=== PATIENT | male | born 1955 | race American Indian/Alaskan Native ===

== ENCOUNTER 2018-10-27 15:12 | Inpatient (IN) | payer MEDICARE, MEDICAID ==
--- NOTE | 2018-10-27 16:22 | RAD ---
HISTORY: Detox/Psy COMPARISON: None available. TECHNIQUE: Chest, one view. FINDINGS: LUNGS: No focal consolidation. Please note that chest x-ray has limited sensitivity for the detection of pulmonary masses. PLEURA: No significant pleural effusion identified. No definite pneumothorax . CARDIOVASCULAR: Heart size appears within normal limits. Ectatic aorta. Atherosclerotic calcifications. OSSEOUS STRUCTURES: Degenerative changes of the spine. VISUALIZED UPPER ABDOMEN: Mild elevation of the right hemidiaphragm. OTHER FINDINGS: None. IMPRESSION: No focal consolidation.
[2018-10-27] MEDS ORDERED: Aspirin 325 mg EC Tablets PO STA (16:26)
--- NOTE | 2018-10-27 16:42 | C.PDOC ---
History Of Present Illness 63 year old male with a PMHx of HTN, DM, CAD, s/p stent placement, and heroin abuse, presents requesting detox from heroin. Patient is also complaining of chest pain, rated 5/10, which is left-sided and non-radiating. He denies any a ssociated syncope, nausea, vomiting, diaphoresis, syncope, or dizziness. Patient states he used to take nitro for the pain but has not in a while. Time Seen by Provider: 10/27/18 15:51 Chief Complaint (Nursing): Substance Abuse History Per: Patient History/Exam Limitations: no limitations Onset/Duration Of Symptoms: Days Current Symptoms Are (Timing): Still Present Past Medical History Reviewed: Historical Data, Nursing Documentation, Vital Signs Vital Signs: Last Vital Signs Temp 98.2 F 10/27/18 15:28 Pulse 100 H 10/27/18 15:28 Resp 18 10/27/18 15:28 BP 184/110 H 10/27/18 15:28 Pulse Ox 95 10/27/18 15:28 - Medical History PMH: CAD, Diabetes, HTN Surgical History: Coronary Stent Family History: States: No Known Family Hx - Social History Hx Tobacco Use: Yes Hx Alcohol Use: No Hx Substance Use: Yes (Heroin, methadone) - Immunization History Hx Tetanus Toxoid Vaccination: Yes Hx Influenza Vaccination: Yes Hx Pneumococcal Vaccination: Yes Review Of Systems Except As Marked, All Systems Reviewed And Found Negative. Constitutional: Negative for: Fever, Sweats Cardiovascular: Positive for: Chest Pain Respiratory: Negative for: Cough, Shortness of Breath Gastrointestinal: Negative for: Nausea, Vomiting Neurological: Negative for: Weakness, Numbness, Headache, Dizziness Psych: Positive for: Other (Heroin abuse) Physical Exam - Physical Exam Appears: Non-toxic, No Acute Distress Skin: Warm, Dry, No Diaphoretic Head: Atraumatic, Normacephalic Eye(s): bilateral: Normal Inspection (conjunctiva clear), PERRL, EOMI Oral Mucosa: Moist Neck: Normal ROM, Supple Chest: Symmetrical, No Tenderness (to the chest wall), No Ecchymosis Cardiovascular: Rhythm Regular, No Edema Respiratory: Normal Breath Sounds, No Rales, No Rhonchi, No Wheezing Gastrointestinal/Abdominal: Soft, No Tenderness, No Distention Extremity: Normal ROM, No Pedal Edema, No Calf Tenderness Pulses: Left Dorsalis Pedis: Normal, Right Dorsalis Pedis: Normal Neurological/Psych: Oriented x3 ED Course And Treatment - Laboratory Results Result Diagrams: 10/27/18 16:48 10/27/18 16:48 Interpretation Of Abnormal: U-tox shows +opiates and methadone ECG: Interpreted By Me, Viewed By Me ECG Rhythm: Sinus Rhythm Interpretation Of ECG: NSR at 83 bpm, normal intervals, left axis deviation. no ST elevation, T wave inversions in lateral leads v5-6. No prior EKG for comparison Rate From EC O2 Sat by Pulse Oximetry: 95 (RA) Pulse Ox Interpretation: Normal - Other Rad CXR X-Ray: Read By Radiologist Interpretation: Accession No. : [id number]. Patient Name / ID : VADIM [id number] / [id number]. Exam Date : 10/27/2018 15:57:02 ( Approved ). Study Comment : Sex / Age : M / 63Y. Creator : José Manuel Mendoza. Dictator : Aisha Cruz MD. Newsroom Intern : Rehab Technician : Aisha Cruz MD. Approver2 : Report Date : 10/27/2018 16:10:28. My Comment : . HISTORY: Detox/Psy. COMPARISON: None available. TECHNIQUE: Chest, one view. FINDINGS: LUNGS: No focal consolidation. Please note that chest x-ray has limited sensitivity for the detection of pulmonary masses. PLEURA: No significant pleural effusion identif ied. No definite pneumothorax . CARDIOVASCULAR: Heart size appears within normal limits. Ectatic aorta. Atherosclerotic calcifications. OSSEOUS STRUCTURES: Degenerative changes of the spine. VISUALIZED UPPER ABDOMEN: Mild elevation of the right hemidiaphragm. OTHER FINDINGS: None. IMPRESSION: No focal consolidation. Medical Decision Making Medical Decision Making: Impression: Chest Pain, requesting detox Plan: - CBC, CMP, drug screen, cardiac enzymes - UA - EKG - Chest x-ray - 325 mg PO Aspirin EKG shows T wave inversions in lateral leads, no old EKG for comparison. Discussed with youth care worker, will likely need to admit patient to medical floor. 17:[address] Kolb, patient accepted for admission. Requests Dr. Montoya for cardiology consult. sheet metal worker helper states detox unit will hold the bed for patient. Disposition Counseled Patient/Family Regarding: Studies Performed, Diagnosis - Disposition Disposition: HOSPITALIZED Disposition Time: 17:41 Condition: STABLE - Clinical Impression Clinical Impression: Chest pain, Abnormal EKG, Hyperglycemia, Heroin abuse - Scribe Statement The provider has reviewed the documentation as recorded by the Scribe Huong Sims All medical record entries made by the Byronibe were at my direction and personally dictated by me. I have reviewed the chart and agree that the record accurately reflects my personal performance of the history, physical exam, medical decision making, and the department course for this patient. I have also personally directed, reviewed, and agree with the discharge instructions and disposition.
[2018-10-27 16:51] LABS: BASO % 0.5 % (0.0-2.0); EOS # 0.1 K/uL (0.0-0.7); EOS % 1.1 % (0.0-4.0); HEMOGLOBIN 14.8 g/dL (12.0-18.0); LYMPH # 2.4 K/uL (1.0-4.3); LYMPH % 30.9 % (20.0-40.0); MEAN CELL VOLUME 92.3 fL (80.0-94.0); MEAN CORPUSCULAR HEMOGLOBIN 30.1 pg (27.0-31.0); MEAN CORPUSCULAR HGB CONC 32.6 g/dL (33.0-37.0); MEAN PLATELET VOLUME 10.2 fL (7.2-11.7); MONO # 0.6 K/uL (0.0-0.8); MONO % 8.1 % (0.0-10.0); NEUT # 4.7 K/uL (1.8-7.0); NEUT % 59.4 % (50.0-75.0); NRBC % 0.1 % (0.0-2.0); RBC 4.92 Mil/uL (4.40-5.90); WHITE BLOOD COUNT 7.9 K/uL (4.8-10.8)
[2018-10-27 16:59] LABS: URINE BACTERIA RARE (<OCC); URINE BILIRUBIN NEGATIVE (NEGATIVE); URINE BLOOD NEGATIVE (NEGATIVE); URINE CLARITY Clear (Clear); URINE COLOR Yellow (YELLOW); URINE GLUCOSE (UA) 3+ mg/dL (Normal); URINE LEUKOCYTE ESTERASE NEG Leu/uL (Negative); URINE PROTEIN 2+ mg/dL (NEGATIVE)
[2018-10-27 17:12] LABS: BARBITURATES, UR NEGATIVE (NEGATIVE)
[2018-10-27 17:14] LABS: PHENCYCLIDINE, UR NEGATIVE (NEGATIVE)
[2018-10-27 17:24] LABS: ALB/GLOB RATIO 1.2 (1.0-2.1); ALBUMIN 4.7 g/dL (3.5-5.0); ALT/SGPT 28 U/L (21-72); AST/SGOT 33 U/L (17-59); BLOOD UREA NITROGEN 16 mg/dL (9-20); CALCIUM 9.4 mg/dl (8.6-10.4); GFR NON-AFRICAN AMERICAN > 60
[2018-10-27 17:40] LABS: BENZODIAZEPINES, UR POSITIVE (NEGATIVE); OPIATES, UR POSITIVE (NEGATIVE)
[2018-10-28 00:12] LABS: HDL CHOLESTEROL 39 mg/dL (30-70)
[2018-10-28 00:24] LABS: LDL CHOLESTEROL 118 mg/dL (0-129)
[2018-10-28 00:25] LABS: CK-MB 0.61 ng/mL (0.0-3.38)
[2018-10-28 01:19] LABS: FOLATE 10.3 ng/mL
[2018-10-28] MEDS: (Novolin R) Insulin Human Regular 100 units/ml vial SC SCH ×4 (08:02→22:41)
[2018-10-28 09:03] LABS: BLOOD UREA NITROGEN 21 mg/dL (9-20); CALCIUM 9.1 mg/dl (8.6-10.4); GFR NON-AFRICAN AMERICAN > 60
[2018-10-28 09:05] LABS: IRON 195 ug/dL (49-181)
[2018-10-28 09:12] LABS: CK-MB 0.58 ng/mL (0.0-3.38)
[2018-10-28 09:14] LABS: TOTAL IRON BINDING CAPACITY 356 ug/dL (250-450)
[2018-10-28 09:18] LABS: % IRON SATURATION 55 (20-55)
--- NOTE | 2018-10-28 09:34 | PCM.PSYCH ---
Initial Psychiatric Evaluation - Initial Psychiatric Evaluation Type of Admission: Voluntary Legal Status: Capacity History of Present Illness and Precipitating Events: 3 year old male with a PMHx of HTN, DM, CAD, s/p stent placement, and heroin abuse, presents requesting detox from heroin. Patient is also complaining of chest pain, rated 5/10, which is left-sided and non-radiating. He denies any associated syncope, nausea, vomiting, diaphoresis, syncope, or dizziness. Current Medications: Active Medications Generic Name Dose Route Start Last Admin Trade Name Kirk PRN Reason Stop Dose Admin Amlodipine Besylate 10 mg 10/28/18 10:00 Norvasc PO DAILY KATHY Aspirin 81 mg 10/28/18 10:00 Ecotrin PO DAILY KATHY Heparin Sodium (Porcine) 5,000 units 10/28/18 10:00 Heparin SC Q12 KATHY Insulin Detemir 35 unit 10/28/18 22:00 Levemir SC HS [facility] Insulin Human Regular 0 unit 10/28/18 07:30 10/28/18 08:02 Novolin R SC 3 units ACHS [facility] Administration Protocol Metformin HCl 500 mg 10/28/18 10:00 Glucophage PO BID KATHY Metoprolol Succinate 50 mg 10/28/18 10:00 Toprol Xl PO DAILY [facility] Rosuvastatin Calcium 40 mg 10/28/18 22:00 Crestor PO HS [facility] Past Psychiatric History - Past Psychiatric History Pertinent Medical Hx (Current Medical&Sleep Prob, Allergies): Allergies Allergy/AdvReac Type Severity Reaction Status Date / Time No Known Allergies Allergy Verified 10/27/18 15:36 Aspirin [Ecotrin] 81 mg PO DAILY 10/27/18 Atorvastatin [Lipitor] 80 mg PO HS 10/27/18 Insulin Detemir [Levemir] 35 units HS 10/27/18 Insulin NPH Hum/Reg Insulin Hm [Novolin 70-30 Flexpen] 50 units BID 10/27/18 Metoprolol Succinate 50 mg PO DAILY 10/27/18 Valsartan/Hydrochlorothiazide [Valsartan-Hctz 320-25 mg Tab] 1 tab DAILY 10/27/18 amLODIPine [Norvasc] 10 mg PO DAILY 10/27/18 metFORMIN [glucOPHAGE] 500 mg PO BID 10/27/18
[2018-10-28] MEDS: Metoprolol Succinate 50 mg XL Tab PO SCH (09:36)
--- NOTE | 2018-10-28 10:43 | PCM.PSYCH ---
Initial Psychiatric Evaluation - Initial Psychiatric Evaluation Type of Admission: Voluntary Legal Status: Capacity Chief Complaint (in patient's own words): "heroin" History of Present Illness and Precipitating Events: Psychiatry consulted for substance abuse. 63 yo male, single, homeless, unemployed on disability, presents for detox from heroin. Pt reports using 6-8 bags of heroin intranasally, daily; his last use was 10/27. Pt started using at age 17. Pt reports going to detox once in his lifetime and attending rehab once at [facility] 15 years ago. Pt denies attending NA meetings. Pt reports being enrolled at [facility] methadone program for 1 year, receiving 30 mg Methadone, but recently stopped attending. Pt admits to occasional marijuana use, smokes 1 ppd of tobacco, denies any alcohol or cocaine use. Pt denies any current SI or HI. Pt is currently on probation due to heroin possession. PMHx: CAD s/p stent, HTN, Diabetes type I PSHx: Coronary stent Past Psychiatric Hx: Depression denies any f/u or medication compliance Past Fam Psych Hx: denies Current Medications: Active Medications Generic Name Dose Route Start Last Admin Trade Name Freq PRN Reason Stop Dose Admin Amlodipine Besylate 10 mg 10/28/18 10:00 10/28/18 09:36 Norvasc PO 10 mg DAILY KATHY Administration Aspirin 81 mg 10/28/18 10:00 10/28/18 09:37 Ecotrin PO 81 mg DAILY KATHY Administration Heparin Sodium (Porcine) 5,000 units 10/28/18 10:00 10/28/18 09:37 Heparin SC Not Given Q12 [facility] Insulin Detemir 35 unit 10/28/18 22:00 Levemir SC HS K[facility] Insulin Human Regular 0 unit 10/28/18 07:30 10/28/18 08:02 Novolin R SC 3 units ACHS KATHY Administration Protocol Metformin HCl 500 mg 10/28/18 10:00 10/28/18 09:37 Glucophage PO Not Given BID [facility] Metoprolol Succinate 50 mg 10/28/18 10:00 10/28/18 09:36 Toprol Xl PO Not Given DAILY KATHY Rosuvastatin Calcium 40 mg 10/28/18 22:00 Crestor PO HS KATHY Past Psychiatric History - Past Psychiatric History Previous Treatment History: Intensive Outpatient Pertinent Medical Hx (Current Medical&Sleep Prob, Allergies): Allergies Allergy/AdvReac Type Severity Reaction Status Date / Time No Known Allergies Allergy Verified 10/27/18 15:36 Aspirin [Ecotrin] 81 mg PO DAILY 10/27/18 Atorvastatin [Lipitor] 80 mg PO HS 10/27/18 Insulin Detemir [Levemir] 35 units HS 10/27/18 Insulin NPH Hum/Reg Insulin Hm [Novolin 70-30 Flexpen] 50 units BID 10/27/18 Metoprolol Succinate 50 mg PO DAILY 10/27/18 Valsartan/Hydrochlorothiazide [Valsartan-Hctz 320-25 mg Tab] 1 tab DAILY 10/27/18 amLODIPine [Norvasc] 10 mg PO DAILY 10/27/18 metFORMIN [glucOPHAGE] 500 mg PO BID 10/27/18 Review of Systems - Psychiatric Psychiatric: Abnormal Sleep Pattern, Anhedonia, Anxiety, Change in Appetite, Depression, Difficulty Concentrating. absent: Hallucinations, Homicidal Ideation, Suicidal Ideation Mental Status Examination - Personal Presentation Personal Presentation: Looks older than stated age - Affect Affect: Constricted - Motor Activity Motor Activity: Calm - Reliability in Providing Information Reliability in Providing Information: Good - Speech Speech: Organized - Mood Mood: Depressed, Anxious - Formal Thought Process Formal Thought Process: No Impairment - Cognitive Functions Orientation: Person, Place, Situation, Time Sensorium: Alert Attention/Concentration: Easily distracted Abstract Thinking: [place] Estimate of Intelligence: Below average Judgement: Intact, as evidence by: Insight regarding need for hospitalization Memory: Recent intact, as evidence by: Ability to recall events of the day, Remote impaired as evidenced by: Inability to recall sig life events - Risk Risk: Withdrawal, Diminished functioning - Strength & Assets Inventory Strength & Assets Inventory: Cooperative - Limitations Limitations: Living alone, Other DSM 5 DX - DSM 5 DSM 5 Diagnosis: Opiod withdrawal Opiod use disorder, severe Depressive disorder, unspecified r/o MDD - Recommended/Plan of Treatment Treatment Recommendations and Plan of Treatment: Taper with Methadone Gabapentin for augmentation if needed As needed medications Remeron for depression All risks, benefits and alternatives of the meds discussed, and the pt agreed and understood. Nicotine patch if needed Will transfer pt to detox once he is medically cleared. Please contact the ad writer 33 min
[2018-10-28 14:16] LABS: BASO % 0.6 % (0.0-2.0); EOS # 0.1 K/uL (0.0-0.7); EOS % 1.3 % (0.0-4.0); HEMOGLOBIN 14.6 g/dL (12.0-18.0); LYMPH # 1.5 K/uL (1.0-4.3); LYMPH % 25.4 % (20.0-40.0); MEAN CORPUSCULAR HEMOGLOBIN 30.3 pg (27.0-31.0); MEAN PLATELET VOLUME 10.7 fL (7.2-11.7); MONO # 0.6 K/uL (0.0-0.8); MONO % 9.3 % (0.0-10.0); NEUT # 3.8 K/uL (1.8-7.0); NEUT % 63.4 % (50.0-75.0); RBC 4.84 Mil/uL (4.40-5.90); RED CELL DISTRIBUTION WIDTH 13.8 % (11.5-14.5)
--- NOTE | 2018-10-28 14:32 | CARD ---
APPROVED REPORT Date of service: 10/27/2018 EKG Measurement Heart [id number] <Conclusion> Normal sinus rhythm Left axis deviation T wave abnormality, consider lateral ischemia Abnormal ECG
[2018-10-28 14:40] LABS: MEAN CELL VOLUME 94.6 fL (80.0-94.0)
--- NOTE | 2018-10-28 16:24 | CP.PCM.CON ---
<Higinio Alfredo - Last Filed: 10/28/18 17:09> History of Present Illness - History of Present Illness History of Present Illness: 63 year old male with a past medical history of hypertension, CAD s/p CABG (left circumflex), Diabetes mellitus, and heroin abuse presents to the hospital with c hest pain at rest for the past month. The patient reports its located mid sternally and radiates to the left under arm. Patient describes it as sharp in nature and that it comes in goes throughout the day. Patient denies any association with movement or activity. Patient admits taking heroin to help with the pain. Patient denies any fever,s chills, nausea, vomiting, syncopal episodes, palpitations, or any other complaints. PMD: Dr. Kolb Medical history: htn, cad, dm Surgical history: CABG Allergies: Denies Family history: denies Review of Systems - Constitutional Constitutional: absent: Chills, Frequent Falls, Night Sweats, Weakness - EENT Eyes: absent: Blurred Vision, Discharge, Requires Corrective Lenses, Other Visual Disturbances Ears: absent: Ear Discharge, Dizziness Nose/Mouth/Throat: absent: Nasal Congestion, Nose Pain, Bleeding Gums, Dysphagia, Facial Pain - Cardiovascular Cardiovascular: Chest Pain. absent: Claudication, Irregular Heart Rhythm, Leg Edema, Palpitations, Pedal Edema, Slow Heart Rate, Syncope - Respiratory Respiratory: absent: Cough, Hemoptysis, Snoring, Stridor, Pain on Inspiration - Gastrointestinal Gastrointestinal: absent: Belching, Change in Stool Character, Diarrhea, Loose Stools, Melena, Nausea, Vomiting - Musculoskeletal Musculoskeletal: absent: Arthralgias, Limited Range of Motion, Myalgias, Stiffness, Tingling - Neurological Neurological: absent: Abnormal Hearing, Burning Sensations, Dizziness, Lack of Coordination, Radicular Pain, Tingling, Tremor, Vertigo - Psychiatric Psychiatric: absent: Abnormal Sleep Pattern, Depression - Endocrine Endocrine: absent: Polydipsia, Polyphagia, Polyuria - Hematologic/Lymphatic Hematologic: absent: Easy Bleeding, Easy Bruising Past Patient History - Past Social History Smoking Status: Current Some Days Smoker - CARDIAC Hx Hypertension: Yes - ENDOCRINE/METABOLIC Hx Diabetes Mellitus Type 1: Yes - PSYCHIATRIC Hx Substance Use: Yes (Heroin, methadone) - SURGICAL HISTORY Hx Coronary Stent: Yes - ANESTHESIA Hx Anesthesia: Yes Hx Anesthesia Reactions: No Meds Allergies/Adverse Reactions: Allergies Allergy/AdvReac Type Severity Reaction Status Date / Time No Known Allergies Allergy Verified 10/27/18 15:36 - Medications Medications: Current Medications Amlodipine Besylate (Norvasc) 10 mg PO DAILY [facility] Last Admin: 10/28/18 09:36 Dose: 10 mg Aspirin (Ecotrin) 81 mg PO DAILY [facility] Last Admin: 10/28/18 09:37 Dose: 81 mg Gabapentin (Neurontin) 100 mg PO TID [facility] Last Admin: 10/28/18 13:36 Dose: 100 mg Heparin Sodium (Porcine) (Heparin) 5,000 units SC Q12 [facility] Last Admin: 10/28/18 09:37 Dose: Not Given Insulin Detemir (Levemir) 35 unit SC [facility] Insulin Human Regular (Novolin R) 0 unit SC ACHS [facility]; Protocol Last Admin: 10/28/18 12:28 Dose: 6 units Metformin HCl (Glucophage) 500 mg PO BID [facility] Last Admin: 10/28/18 09:37 Dose: Not Given Metoprolol Succinate (Toprol Xl) 50 mg PO DAILY [facility] Last Admin: 10/28/18 09:36 Dose: Not Given Mirtazapine (Remeron) 15 mg PO [facility] Rosuvastatin Calcium (Crestor) 40 mg PO [facility] Physical Exam - Head Exam Head Exam: ATRAUMATIC, NORMAL INSPECTION - Eye Exam Eye Exam: EOMI, Normal appearance, PERRL. absent: Periorbital tenderness Pupil Exam: NORMAL ACCOMODATION, PERRL. absent: Irregular, Unequal - ENT Exam ENT Exam: Mucous Membranes Moist, Normal Oropharynx - Neck Exam Neck exam: Negative for: Lymphadenopathy, Thyromegaly - Respiratory Exam Respiratory Exam: Clear to Auscultation Bilateral, NORMAL BREATHING PATTERN. absent: Prolonged Expiratory Phase, Respiratory Distress - Cardiovascular Exam Cardiovascular Exam: REGULAR RHYTHM, RRR, +S1, +S2. absent: Rubs - GI/Abdominal Exam GI & Abdominal Exam: Normal Bowel Sounds, Soft. absent: Organomegaly, Tenderness - Extremities Exam Extremities exam: Positive for: normal inspection. Negative for: full ROM, pedal edema - Back Exam Back exam: NORMAL INSPECTION. absent: CVA tenderness (R), paraspinal tenderness - Neurological Exam Neurological exam: Alert, CN II-XII Intact, Oriented x3 - Psychiatric Exam Psychiatric exam: Normal Affect, Normal Mood - Skin Skin Exam: Dry, Intact, Normal Color Results - Vital Signs Recent Vital Signs: Last Vital Signs Temp 98.4 F 10/28/18 07:00 Pulse 55 L 10/28/18 09:36 Resp 20 10/28/18 07:00 BP 133/85 10/28/18 09:36 Pulse Ox 96 10/28/18 07:00 - Labs Result Diagrams: 10/28/18 14:05 10/28/18 08:22 Labs: Laboratory Results - last 24 hr 10/27/18 10/27/18 10/27/18 16:48 16:48 16:48 WBC 7.9 RBC 4.92 Hgb 14.8 Hct 45.4 MCV 92.3 MCH 30.1 MCHC 32.6 L RDW 14.0 Plt Count 170 MPV 10.2 Neut % (Auto) 59.4 Lymph % (Auto) 30.9 [place] % (Auto) 8.1 Eos % (Auto) 1.1 Baso % (Auto) 0.5 Neut # (Auto) 4.7 Lymph # (Auto) 2.4 [place] # (Auto) 0.6 Eos # (Auto) 0.1 Baso # (Auto) 0.0 Sodium 139 Potassium 4.1 Chloride 103 Carbon Dioxide 26 Anion Gap 14 BUN 16 Creatinine 0.9 Est GFR ( Amer) > 60 Est GFR (Non-Af Amer) > 60 POC Glucose (mg/dL) Random Glucose 280 H Hemoglobin A1c Calcium 9.4 Phosphorus 4.2 Magnesium 1.9 Iron TIBC % Saturation Total Bilirubin 1.0 AST 33 ALT 28 Alkaline Phosphatase 121 Total Creatine Kinase CK-MB (Mass) Troponin I < 0.0120 Total Protein 8.5 H Albumin 4.7 Globulin 3.8 Albumin/Globulin Ratio 1.2 Triglycerides Cholesterol LDL Cholesterol Direct HDL Cholesterol Vitamin B12 Folate TSH 3rd Generation Urine Color Yellow Urine Clarity Clear Urine pH 5.0 Ur Specific [place] 1.017 Urine Protein 2+ H Urine Glucose (UA) 3+ H Urine Ketones Negative Urine Blood Negative Urine Nitrate Negative Urine Bilirubin Negative Urine Urobilinogen 2.0 Ur Leukocyte Esterase Neg Urine WBC (Auto) 1 Urine RBC (Auto) < 1 Urine Bacteria Rare Urine Opiates Screen Urine Methadone Screen Ur Barbiturates Screen Ur Phencyclidine Scrn Ur Amphetamines Screen U Benzodiazepines Scrn U Oth Cocaine Metabols U Cannabinoids Screen Alcohol, Quantitative < 10 01/15/19 01/15/19 01/15/19 16:48 21:09 23:56 WBC RBC Hgb Hct MCV MCH MCHC RDW Plt Count MPV Neut % (Auto) Lymph % (Auto) [place] % (Auto) Eos % (Auto) Baso % (Auto) Neut # (Auto) Lymph # (Auto) [place] # (Auto) Eos # (Auto) Baso # (Auto) Sodium Potassium Chloride Carbon Dioxide Anion Gap BUN Creatinine Est GFR ( Amer) Est GFR (Non-Af Amer) POC Glucose (mg/dL) 324 H Random Glucose Hemoglobin A1c Calcium Phosphorus Magnesium Iron TIBC % Saturation Total Bilirubin AST ALT Alkaline Phosphatase Total Creatine Kinase 61 CK-MB (Mass) 0.61 Troponin I < 0.0120 Total Protein Albumin Globulin Albumin/Globulin Ratio Triglycerides 163 H Cholesterol 183 LDL Cholesterol Direct 118 HDL Cholesterol 39 Vitamin B12 405 Folate 10.3 TSH 3rd Generation Urine Color Urine Clarity Urine pH Ur Specific [place] Urine Protein Urine Glucose (UA) Urine Ketones Urine Blood Urine Nitrate Urine Bilirubin Urine Urobilinogen Ur Leukocyte Esterase Urine WBC (Auto) Urine RBC (Auto) Urine Bacteria Urine Opiates Screen Positive H Urine Methadone Screen Positive H Ur Barbiturates Screen Negative Ur Phencyclidine Scrn Negative Ur Amphetamines Screen Negative U Benzodiazepines Scrn Positive U Oth Cocaine Metabols Negative U Cannabinoids Screen Negative Alcohol, Quantitative 10/28/18 10/28/18 10/28/18 06:19 08:22 08:22 WBC RBC Hgb Hct MCV MCH MCHC RDW Plt Count MPV Neut % (Auto) Lymph % (Auto) [place] % (Auto) Eos % (Auto) Baso % (Auto) Neut # (Auto) Lymph # (Auto) [place] # (Auto) Eos # (Auto) Baso # (Auto) Sodium 136 Potassium 4.9 Chloride 103 Carbon Dioxide 24 Anion Gap 14 BUN 21 H Creatinine 0.9 Est GFR ( Amer) > 60 Est GFR (Non-Af Amer) > 60 POC Glucose (mg/dL) 268 H Random Glucose 292 H Hemoglobin A1c Calcium 9.1 Phosphorus Magnesium Iron 195 H TIBC 356 % Saturation 55 Total Bilirubin AST ALT Alkaline Phosphatase Total Creatine Kinase 61 CK-MB (Mass) 0.58 Troponin I < 0.0120 Total Protein Albumin Globulin Albumin/Globulin Ratio Triglycerides Cholesterol LDL Cholesterol Direct HDL Cholesterol Vitamin B12 Folate TSH 3rd Generation 1.96 Urine Color Urine Clarity Urine pH Ur Specific [place] Urine Protein Urine Glucose (UA) Urine Ketones Urine Blood Urine Nitrate Urine Bilirubin Urine Urobilinogen Ur Leukocyte Esterase Urine WBC (Auto) Urine RBC (Auto) Urine Bacteria Urine Opiates Screen Urine Methadone Screen Ur Barbiturates Screen Ur Phencyclidine Scrn Ur Amphetamines Screen U Benzodiazepines Scrn U Oth Cocaine Metabols U Cannabinoids Screen Alcohol, Quantitative 10/28/18 10/28/18 10/28/18 12:22 14:05 14:05 WBC 6.0 RBC 4.84 Hgb 14.6 Hct 45.8 MCV 94.6 H D MCH 30.3 MCHC 32.0 L RDW 13.8 Plt Count 162 MPV 10.7 Neut % (Auto) 63.4 Lymph % (Auto) 25.4 [place] % (Auto) 9.3 Eos % (Auto) 1.3 Baso % (Auto) 0.6 Neut # (Auto) 3.8 Lymph # (Auto) 1.5 [place] # (Auto) 0.6 Eos # (Auto) 0.1 Baso # (Auto) 0.0 Sodium Potassium Chloride Carbon Dioxide Anion Gap BUN Creatinine Est GFR ( Amer) Est GFR (Non-Af Amer) POC Glucose (mg/dL) 434 H* Random Glucose Hemoglobin A1c 9.3 H Calcium Phosphorus Magnesium Iron TIBC % Saturation Total Bilirubin AST ALT Alkaline Phosphatase Total Creatine Kinase CK-MB (Mass) Troponin I Total Protein Albumin Globulin Albumin/Globulin Ratio Triglycerides Cholesterol LDL Cholesterol Direct HDL Cholesterol Vitamin B12 Folate TSH 3rd Generation Urine Color Urine Clarity Urine pH Ur Specific [place] Urine Protein Urine Glucose (UA) Urine Ketones Urine Blood Urine Nitrate Urine Bilirubin Urine Urobilinogen Ur Leukocyte Esterase Urine WBC (Auto) Urine RBC (Auto) Urine Bacteria Urine Opiates Screen Urine Methadone Screen Ur Barbiturates Screen Ur Phencyclidine Scrn Ur Amphetamines Screen U Benzodiazepines Scrn U Oth Cocaine Metabols U Cannabinoids Screen Alcohol, Quantitative Assessment & Plan - Assessment and Plan (Free Text) Assessment: 63 year old male with a past medical history of hypertension, CAD s/p CABG (left circumflex), Diabetes mellitus, and heroin abuse presents to the hospital with chest pain at rest for the past month. Plan: 1.Chest pain Troponin (-)x3 TSH:1.96 Drug screen: Positive (Opiates, Methadone, and Benzodiazepine) Will do Lexiscan stress test NPO after midnight 2.DM Insulin Detemir 35 unit SC HS Metform in 500mg PO BID 3.HLD Rosuvastatin 40mg PO HIS 4. HTN Norvasc 10mg PO Daily Metoprolol 80mg PO Daily 5.Neuropathy Gabapentin 100mg PO TID ppx -Heparin Plan discussed with Dr. Montoya. Higinio Alfredo, PGY-2 <Ronald Montoya - Last Filed: 10/28/18 21:52> Meds - Medications Medications: Current Medications Amlodipine Besylate (Norvasc) 10 mg PO DAILY [facility] Last Admin: 10/28/18 09:36 Dose: 10 mg Aspirin (Ecotrin) 81 mg PO DAILY [facility] Last Admin: 10/28/18 09:37 Dose: 81 mg Gabapentin (Neurontin) 100 mg PO TID [facility] Last Admin: 10/28/18 18:15 Dose: 100 mg Heparin Sodium (Porcine) (Heparin) 5,000 units SC Q12 [facility] Last Admin: 10/28/18 09:37 Dose: Not Given Insulin Detemir (Levemir) 35 unit SC [facility] Insulin Human Regular (Novolin R) 0 unit SC ACHS [facility]; Protocol Last Admin: 10/28/18 18:15 Dose: 4 units Metformin HCl (Glucophage) 500 mg PO BID [facility] Last Admin: 10/28/18 18:15 Dose: 500 mg Metoprolol Succinate (Toprol Xl) 50 mg PO DAILY [facility] Last Admin: 10/28/18 09:36 Dose: Not Given Mirtazapine (Remeron) 15 mg PO [facility] Nicotine (Nicoderm Cq) 1 patch TD DAILY [facility] Last Admin: 10/28/18 18:32 Dose: 1 patch Rosuvastatin Calcium (Crestor) 40 mg PO [facility] Results - Vital Signs Recent Vital Signs: Last Vital Signs Temp 98.1 F 10/28/18 15:30 Pulse 68 10/28/18 15:30 Resp 18 10/28/18 15:30 BP 103/68 10/28/18 15:30 Pulse Ox 95 10/28/18 15:30 - Labs Result Diagrams: 10/28/18 14:05 10/28/18 08:22 Labs: Laboratory Results - last 24 hr 10/27/18 10/27/18 10/28/18 21:09 23:56 06:19 WBC RBC Hgb Hct MCV MCH MCHC RDW Plt Count MPV Neut % (Auto) Lymph % (Auto) [place] % (Auto) Eos % (Auto) Baso % (Auto) Neut # (Auto) Lymph # (Auto) [place] # (Auto) Eos # (Auto) Baso # (Auto) Sodium Potassium Chloride Carbon Dioxide Anion Gap BUN Creatinine Est GFR ( Amer) Est GFR (Non-Af Amer) POC Glucose (mg/dL) 324 H 268 H Random Glucose Hemoglobin A1c Calcium Iron TIBC % Saturation Total Creatine Kinase 61 CK-MB (Mass) 0.61 Troponin I < 0.0120 Triglycerides 163 H Cholesterol 183 LDL Cholesterol Direct 118 HDL Cholesterol 39 Vitamin B12 405 Folate 10.3 TSH 3rd Generation 10/28/18 10/28/18 10/28/18 08:22 08:22 12:22 WBC RBC Hgb Hct MCV MCH MCHC RDW Plt Count MPV Neut % (Auto) Lymph % (Auto) [place] % (Auto) Eos % (Auto) Baso % (Auto) Neut # (Auto) Lymph # (Auto) [place] # (Auto) Eos # (Auto) Baso # (Auto) Sodium 136 Potassium 4.9 Chloride 103 Carbon Dioxide 24 Anion Gap 14 BUN 21 H Creatinine 0.9 Est GFR ( Amer) > 60 Est GFR (Non-Af Amer) > 60 POC Glucose (mg/dL) 434 H* Random Glucose 292 H Hemoglobin A1c Calcium 9.1 Iron 195 H TIBC 356 % Saturation 55 Total Creatine Kinase 61 CK-MB (Mass) 0.58 Troponin I < 0.0120 Triglycerides Cholesterol LDL Cholesterol Direct HDL Cholesterol Vitamin B12 Folate TSH 3rd Generation 1.96 10/28/18 10/28/18 14:05 14:05 WBC 6.0 RBC 4.84 Hgb 14.6 Hct 45.8 MCV 94.6 H D MCH 30.3 MCHC 32.0 L RDW 13.8 Plt Count 162 MPV 10.7 Neut % (Auto) 63.4 Lymph % (Auto) 25.4 [place] % (Auto) 9.3 Eos % (Auto) 1.3 Baso % (Auto) 0.6 Neut # (Auto) 3.8 Lymph # (Auto) 1.5 [place] # (Auto) 0.6 Eos # (Auto) 0.1 Baso # (Auto) 0.0 Sodium Potassium Chloride Carbon Dioxide Anion Gap BUN Creatinine Est GFR ( Amer) Est GFR (Non-Af Amer) POC Glucose (mg/dL) Random Glucose Hemoglobin A1c 9.3 H Calcium Iron TIBC % Saturation Total Creatine Kinase CK-MB (Mass) Troponin I Triglycerides Cholesterol LDL Cholesterol Direct HDL Cholesterol Vitamin B12 Folate TSH 3rd Generation Assessment & Plan - Assessment and Plan (Free Text) Plan: Patient examined and evaluated personally by me. Plan of care d/w the chief medical physicist and as documented
--- NOTE | 2018-10-28 16:45 | CARD ---
APPROVED REPORT Date of service: 10/28/2018 EXAM: Two-dimensional and M-mode echocardiogram with Doppler and color Doppler. INDICATION Abnormal EKG/Arrhythmia Chest Pain heroine abuse RISK FACTORS Hyperlipidemia 2D DIMENSIONS IVSd1.1 (0.7-1.1cm)Aortic Root (2D)3.7 (2.0-3.7cm) LVDd4.9 (3.9-5.9cm)PWd1.1 (0.7-1.1cm) LA [id number] (18-58mL)LVDs3.5 (2.5-4.0cm) FS (%) 27.5 %LVEF (%)56.0 (>50%) LVEF (Armstrong's)55 %IVC0.00 cm M-Mode DIMENSIONS RVDd2.43 (2.1-3.2cm)Left Atrium (MM)3.54 (2.5-4.0cm) IVSd0.96 (0.7-1.1cm)Aortic Root3.54 (2.2-3.7cm) LVDd4.76 (4.0-5.6cm)Aortic Cusp Exc.1.81 (1.5-2.0cm) PWd1.29 (0.7-1.1cm)FS (%) 25 % LVDs2.66 (2.0-3.8cm)LVEF (%)60 (>50%) Mitral Valve MV E [place]44.5cm/sMV A Pemodprn44.3cm/sE/A ratio0.5 TDI Lateral E' Peak V6.42cm/sMedial E' Peak V2.87cm/sE/Lateral E'6.5 E/Medial E'14.5 Tricuspid Valve TR Peak [id number]/sTR Peak [id number] LEFT VENTRICLE The left ventricle is normal size. There is normal left ventricular wall thickness. The left ventricular function is normal. The left ventricular ejection fraction is within the normal range. There is normal LV segmental wall motion. Transmitral Doppler flow pattern is Grade I-abnormal relaxation pattern. No left ventricle thrombus noted on this study. RIGHT VENTRICLE The right ventricle is normal size. There is normal right ventricular wall thickness. The right ventricular systolic function is normal. ATRIA The left atrium size is normal. The right atrium size is normal. AORTIC VALVE The aortic valve is not well visualized. There is trace aortic regurgitation. There is no aortic valvular stenosis. MITRAL VALVE The mitral valve is normal in structure. There is no mitral valve stenosis. There is no mitral valve regurgitation noted. TRICUSPID VALVE The tricuspid valve is normal in structure. There is no tricuspid valve regurgitation noted. PULMONIC VALVE The pulmonary valve is normal in structure. There is no pulmonic valvular regurgitation. GREAT VESSELS The aortic root is normal in size. The IVC is normal in size and collapses >50% with inspiration. PERICARDIAL EFFUSION There is no pericardial effusion. <Conclusion> The left ventricle is normal size. There is normal left ventricular wall thickness. The left ventricular function is normal. The left ventricular ejection fraction is within the normal range. There is normal LV segmental wall motion. Transmitral Doppler flow pattern is Grade I-abnormal relaxation pattern.
[2018-10-28] MEDS: Insulin Detemir 100 units/ml Vial (Levemir) SC SCH (22:39)
[2018-10-29] MEDS: (Novolin R) Insulin Human Regular 100 units/ml vial SC SCH ×4 (07:29→22:48)
[2018-10-29] MEDS: Metoprolol Succinate 50 mg XL Tab PO SCH (11:12)
--- NOTE | 2018-10-29 22:02 | CP.PCM.PN ---
Subjective - Date & Time of Evaluation Date of Evaluation: 10/29/18 Time of Evaluation: 16:20 - Subjective Subjective: Patient seen and evaluated Denies chest pain and dyspnea Review of Systems - Constitutional Constitutional: absent: Chills, Frequent Falls, Night Sweats, Weakness - EENT Eyes: absent: Blurred Vision, Discharge, Requires Corrective Lenses, Other Visual Disturbances Ears: absent: Ear Discharge, Dizziness Nose/Mouth/Throat: absent: Nasal Congestion, Nose Pain, Bleeding Gums, Dysphag ia, Facial Pain - Cardiovascular Cardiovascular: Chest Pain. absent: Claudication, Irregular Heart Rhythm, Leg Edema, Palpitations, Pedal Edema, Slow Heart Rate, Syncope - Respiratory Respiratory: absent: Cough, Hemoptysis, Snoring, Stridor, Pain on Inspiration - Gastrointestinal Gastrointestinal: absent: Belching, Change in Stool Character, Diarrhea, Loose Stools, Melena, Nausea, Vomiting - Musculoskeletal Musculoskeletal: absent: Arthralgias, Limited Range of Motion, Myalgias, Stiffness, Tingling - Neurological Neurological: absent: Abnormal Hearing, Burning Sensations, Dizziness, Lack of Coordination, Radicular Pain, Tingling, Tremor, Vertigo - Psychiatric Psychiatric: absent: Abnormal Sleep Pattern, Depression - Endocrine Endocrine: absent: Polydipsia, Polyphagia, Polyuria - Hematologic/Lymphatic Hematologic: absent: Easy Bleeding, Easy Bruising Physical Exam - Head Exam Head Exam: ATRAUMATIC, NORMAL INSPECTION - Eye Exam Eye Exam: EOMI, Normal appearance, PERRL. absent: Periorbital tenderness Pupil Exam: NORMAL ACCOMODATION, PERRL. absent: Irregular, Unequal - ENT Exam ENT Exam: Mucous Membranes Moist, Normal Oropharynx - Neck Exam Neck exam: Negative for: Lymphadenopathy, Thyromegaly - Respiratory Exam Respiratory Exam: Clear to Auscultation Bilateral, NORMAL BREATHING PATTERN. absent: Prolonged Expiratory Phase, Respiratory Distress - Cardiovascular Exam Cardiovascular Exam: REGULAR RHYTHM, RRR, +S1, +S2. absent: Rubs - GI/Abdominal Exam GI & Abdominal Exam: Normal Bowel Sounds, Soft. absent: Organomegaly, Tenderness - Extremities Exam Extremities exam: Positive for: normal inspection. Negative for: full ROM, pedal edema - Back Exam Back exam: NORMAL INSPECTION. absent: CVA tenderness (R), paraspinal tenderness - Neurological Exam Neurological exam: Alert, CN II-XII Intact, Oriented x3 - Psychiatric Exam Psychiatric exam: Normal Affect, Normal Mood - Skin Skin Exam: Dry, Intact, Normal Color Objective - Vital Signs/Intake and Output Vital Signs (last 24 hours): Temp Pulse Resp BP Pulse Ox 97.7 F 63 20 155/80 H 96 10/29/18 16:00 10/29/18 16:00 10/29/18 16:00 10/29/18 16:00 10/29/18 16:00 Intake and Output: 10/29/18 10/30/18 18:59 06:59 Intake Total 600 Output Total 2 Balance 598 - Medications Medications: Current Medications Amlodipine Besylate (Norvasc) 10 mg PO DAILY [facility] Last Admin: 10/29/18 11:12 Dose: 10 mg Aspirin (Ecotrin) 81 mg PO DAILY [facility] Last Admin: 10/29/18 11:12 Dose: 81 mg Gabapentin (Neurontin) 100 mg PO TID [facility] Last Admin: 10/29/18 17:42 Dose: 100 mg Heparin Sodium (Porcine) (Heparin) 5,000 units SC Q12 [facility] Last Admin: 10/29/18 11:13 Dose: 5,000 units Insulin Detemir (Levemir) 35 unit SC [facility] Last Admin: 10/28/18 22:39 Dose: 35 units Insulin Human Regular (Novolin R) 0 unit SC [facility]; Protocol Last Admin: 10/29/18 17:42 Dose: 4 units Metformin HCl (Glucophage) 500 mg PO BID [facility] Last Admin: 10/29/18 17:42 Dose: 500 mg Methadone HCl (Methadone) 15 mg PO Q24H [facility]; Taper Stop: 11/01/18 08:59 Last Admin: 10/29/18 11:18 Dose: 15 mg Metoprolol Succinate (Toprol Xl) 50 mg PO DAILY [facility] Last Admin: 10/29/18 11:12 Dose: 50 mg Mirtazapine (Remeron) 15 mg PO [facility] Last Admin: 10/28/18 22:39 Dose: 15 mg Nicotine (Nicoderm Cq) 1 patch TD DAILY [facility] Last Admin: 10/29/18 11:11 Dose: 1 patch Rosuvastatin Calcium (Crestor) 40 mg PO [facility] Last Admin: 10/28/18 22:39 Dose: 40 mg - Labs Labs: 10/28/18 14:05 10/28/18 08:22 Assessment and Plan - Assessment and Plan (Free Text) Assessment: 63 year old male with a past medical history of hypertension, CAD s/p CABG (left circumflex), Diabetes mellitus, and heroin abuse presents to the hospital with chest pain at rest for the past month. Plan: 1.Chest pain Troponin (-)x3 TSH:1.96 Drug screen: Positive (Opiates, Methadone, and Benzodiazepine) Normal Stress test 2.DM Insulin Detemir 35 unit SC HS Metform in 500mg PO BID 3.HLD Rosuvastatin 40mg PO HIS 4. HTN Norvasc 10mg PO Daily Metoprolol 80mg PO Daily 5.Neuropathy Gabapentin 100mg PO TID ppx -Heparin
[2018-10-29] MEDS: Insulin Detemir 100 units/ml Vial (Levemir) SC SCH (22:48)
--- NOTE | 2018-10-29 23:10 | HP ---
INDICATIONS: The patient was seen and examined at the bedside on 10/27/2018. this h/pm is for 10/27/18 CHIEF COMPLAINT: Substance abuse and chest pain. HISTORY OF PRESENT ILLNESS: Mr. Gt Ayon is a 63-year-old male with a past medical history of hypertension; diabetes mellitus; coronary artery disease, SP cardiac stenting; heroin abuse; came to the emergency room for detoxification from heroin and complaining about chest pain, radiating, 5/10, which is left sided. He denies any associated syncope, nausea, vomiting or diarrhea. No diaphoresis, no headache, no fever, no chills. According to the patient, he used to take Nitro for the pain but has not in a while. I discussed the patient's condition with the patient's daughter and the patient himself on the bedside and answered all questions. PAST MEDICAL HISTORY: Coronary artery disease, diabetes mellitus, hypertension, history of coronary stenting. FAMILY HISTORY: Father and mother, noncontributory. HABITS: Tobacco: Yes. Alcohol: No as per the patient. Substance abuse: Yes, heroin and methadone. ALLERGIES: THE PATIENT IS NOT ALLERGIC TO ANY MEDICATIONS. HOME MEDICATIONS: Reviewed by me. REVIEW OF SYSTEMS: The patient was seen and examined at the bedside. Looking comfortable. No fever. No chills. No hematuria. No hematochezia. No headache. No dizziness. Does admit to chest pain and looks a little bit anxious.. PHYSICAL EXAMINATION: VITAL SIGNS: Temperature 98.1, pulse 68, blood pressure 103/68, respiratory rate 18. HEENT: Head: Normocephalic and atraumatic. Eyes: PERRLA. Extraocular muscles intact. Conjunctivae clear. Nose patent. Mucosal membranes moist. NECK: Supple. No carotid bruit. No JVD or thyromegaly. CHEST: Bilaterally symmetrical. HEART: S1 and S2 positive. LUNGS: Clear to auscultation. ABDOMEN: Soft. Bowel sounds present. No organomegaly. EXTREMITIES: No edema. No cyanosis. NEUROLOGICAL: The patient is awake and alert, moving all four extremities. No focal deficit. LABORATORY DATA: White blood cell 6, hemoglobin 14.6, hematocrit 45.8, platelets 162. Sodium 136, potassium 4.9, BUN 21, creatinine 0.9, glucose 434, iron 195. ASSESSMENT AND PLAN: Mr. Gt Ayon is a 63-year-old male with increased blood urea nitrogen; diabetes mellitus, uncontrolled, hemoglobin A1c of 9.3; troponin is negative; hypertriglyceridemia; proteinuria; glucosuria; drug testing positive for opiates and methadone. Came with chest pain. Cardiology consult was called. History of hypertension; coronary artery disease, status post coronary artery bypass graft to left circumflex. Using heroin actively. Reviewed Dr. Montoya's notes. According to Dr. Montoya, he will do a stress test, n.p.o. after midnight . The patient is getting insulin and metformin, getting Crestor for hypercholesterolemia. For blood pressure, he is getting Norvasc and metoprolol. For neuropathy, he is getting gabapentin. We will follow up. Vanna Kolb MD MT[facility]
[2018-10-30] MEDS: (Novolin R) Insulin Human Regular 100 units/ml vial SC SCH ×4 (07:59→21:44)
--- NOTE | 2018-10-30 08:50 | PCM.PYCHPN ---
Psychiatric Progress Note - Psychiatric Progress Note Patient seen today, length of contact: 16 min Patient Chief Complaint: "I'm better" Problems Identified/Issues Discussed: The pt is seen, chart reviewed, case discussed with staff. Support and psychoeducation given No new symptoms reported, improving slowly and needs more time No SEs from medications, risks discussed. After care discussed - he wants rehab Medication Change: Yes (detox changes daily) Medical Record Reviewed: Yes Mental Status Examination - Cognitive Function Orientation: Person, Place, Situation, Time Memory: Intact Attention: WNL Concentration: Poor Association: WNL Fund of Knowledge: WNL - Mood Mood: Depressed, Anxious - Affect Affect: Constricted - Speech Speech: Appropriate - Formal Thought Process Formal Thought Process: No Impairment - Suicidal Ideation Suicidal Ideation: No - Homicidal Ideation Homicidal Ideation: No Goal/Treatment Plan - Goal/Treatment Plan Need for Continued Stay: Discharge may exacerbated symptoms, Severe functional impairment Progress Toward Problem(s) and Goals/Treatment Plan: Taper with Methadone Gabapentin for augmentation if needed As needed medications Remeron for depression All risks, benefits and alternatives of the meds discussed, and the pt agreed and understood. Nicotine patch if needed Refer to rehab
[2018-10-30] MEDS: Metoprolol Succinate 50 mg XL Tab PO SCH (10:35)
--- NOTE | 2018-10-30 14:31 | CP.PCM.PCO ---
Physician Communication Note - Physician Communication Note Physician Communication Note: Psych will sign off. Pt will complete his detox Sat am. Refer to rehab.
--- NOTE | 2018-10-30 20:30 | CP.PCM.PN ---
Subjective - Date & Time of Evaluation Date of Evaluation: 10/30/18 Time of Evaluation: 11:30 - Subjective Subjective: Patient seen and evaluated Has normal stress test and EF Review of Systems - Constitutional Constitutional: absent: Chills, Frequent Falls, Night Sweats, Weakness - EENT Eyes: absent: Blurred Vision, Discharge, Requires Corrective Lenses, Other Visual Disturbances Ears: absent: Ear Discharge, Dizziness Nose/Mouth/Throat: absent: Nasal Congestion, Nose Pain, Bleeding Gums, Dyspha denise, Facial Pain - Cardiovascular Cardiovascular: Chest Pain. absent: Claudication, Irregular Heart Rhythm, Leg Edema, Palpitations, Pedal Edema, Slow Heart Rate, Syncope - Respiratory Respiratory: absent: Cough, Hemoptysis, Snoring, Stridor, Pain on Inspiration - Gastrointestinal Gastrointestinal: absent: Belching, Change in Stool Character, Diarrhea, Loose Stools, Melena, Nausea, Vomiting - Musculoskeletal Musculoskeletal: absent: Arthralgias, Limited Range of Motion, Myalgias, Stiffness, Tingling - Neurological Neurological: absent: Abnormal Hearing, Burning Sensations, Dizziness, Lack of Coordination, Radicular Pain, Tingling, Tremor, Vertigo - Psychiatric Psychiatric: absent: Abnormal Sleep Pattern, Depression - Endocrine Endocrine: absent: Polydipsia, Polyphagia, Polyuria - Hematologic/Lymphatic Hematologic: absent: Easy Bleeding, Easy Bruising Physical Exam - Head Exam Head Exam: ATRAUMATIC, NORMAL INSPECTION - Eye Exam Eye Exam: EOMI, Normal appearance, PERRL. absent: Periorbital tenderness Pupil Exam: NORMAL ACCOMODATION, PERRL. absent: Irregular, Unequal - ENT Exam ENT Exam: Mucous Membranes Moist, Normal Oropharynx - Neck Exam Neck exam: Negative for: Lymphadenopathy, Thyromegaly - Respiratory Exam Respiratory Exam: Clear to Auscultation Bilateral, NORMAL BREATHING PATTERN. absent: Prolonged Expiratory Phase, Respiratory Distress - Cardiovascular Exam Cardiovascular Exam: REGULAR RHYTHM, RRR, +S1, +S2. absent: Rubs - GI/Abdominal Exam GI & Abdominal Exam: Normal Bowel Sounds, Soft. absent: Organomegaly, Tenderness - Extremities Exam Extremities exam: Positive for: normal inspection. Negative for: full ROM, pedal edema - Back Exam Back exam: NORMAL INSPECTION. absent: CVA tenderness (R), paraspinal tenderness - Neurological Exam Neurological exam: Alert, CN II-XII Intact, Oriented x3 - Psychiatric Exam Psychiatric exam: Normal Affect, Normal Mood - Skin Skin Exam: Dry, Intact, Normal Color Assessment and Plan - Assessment and Plan (Free Text) Assessment: 63 year old male with a past medical history of hypertension, CAD s/p CABG (left circumflex), Diabetes mellitus, and heroin abuse presents to the hospital with chest pain at rest for the past month. Plan: 1.Chest pain Troponin (-)x3 TSH:1.96 Drug screen: Positive (Opiates, Methadone, and Benzodiazepine) Normal Stress test 2.DM Insulin Detemir 35 unit SC HS Metform in 500mg PO BID 3.HLD Rosuvastatin 40mg PO HIS 4. HTN Norvasc 10mg PO Daily Metoprolol 80mg PO Daily 5.Neuropathy Gabapentin 100mg PO TID ppx -Heparin Patient has normal stress test and EF. No further cardiac work up planned at this time Objective - Vital Signs/Intake and Output Vital Signs (last 24 hours): Temp Pulse Resp BP Pulse Ox 98.1 F 70 20 134/67 95 10/30/18 15:00 10/30/18 15:00 10/30/18 15:00 10/30/18 15:00 10/30/18 15:00 - Medications Medications: Current Medications Amlodipine Besylate (Norvasc) 10 mg PO DAILY [facility] Last Admin: 10/30/18 10:35 Dose: 10 mg Aspirin (Ecotrin) 81 mg PO DAILY [facility] Last Admin: 10/30/18 10:35 Dose: 81 mg Gabapentin (Neurontin) 100 mg PO TID [facility] Last Admin: 10/30/18 17:53 Dose: 100 mg Heparin Sodium (Porcine) (Heparin) 5,000 units SC Q12 [facility] Last Admin: 10/30/18 10:36 Dose: 5,000 units Insulin Detemir (Levemir) 35 unit SC HS [facility] Last Admin: 10/29/18 22:48 Dose: 35 units Insulin Human Regular (Novolin R) 0 unit SC ACHS [facility]; Protocol Last Admin: 10/30/18 17:54 Dose: 2 units Metformin HCl (Glucophage) 500 mg PO BID [facility] Last Admin: 10/30/18 17:53 Dose: 500 mg Methadone HCl (Methadone) 10 mg PO Q24H [facility]; Taper Stop: 11/01/18 08:59 Last Admin: 10/30/18 11:40 Dose: 10 mg Metoprolol Succinate (Toprol Xl) 50 mg PO DAILY [facility] Last Admin: 10/30/18 10:35 Dose: 50 mg Mirtazapine (Remeron) 15 mg PO [facility] Last Admin: 10/29/18 22:47 Dose: 15 mg Nicotine (Nicoderm Cq) 1 patch TD DAILY [facility] Last Admin: 10/30/18 10:39 Dose: 1 patch Rosuvastatin Calcium (Crestor) 40 mg PO [facility] Last Admin: 10/29/18 22:47 Dose: 40 mg - Labs Labs: 10/28/18 14:05 10/28/18 08:22
[2018-10-30] MEDS: Insulin Detemir 100 units/ml Vial (Levemir) SC SCH (21:44)
[2018-10-31 07:34] LABS: HEMOGLOBIN 16.1 g/dL (12.0-18.0); MEAN CORPUSCULAR HEMOGLOBIN 30.9 pg (27.0-31.0); MEAN CORPUSCULAR HGB CONC 32.9 g/dL (33.0-37.0); RBC 5.2 Mil/uL (4.40-5.90); RED CELL DISTRIBUTION WIDTH 13.5 % (11.5-14.5); WHITE BLOOD COUNT 6.8 K/uL (4.8-10.8)
[2018-10-31 07:45] LABS: BLOOD UREA NITROGEN 21 mg/dL (9-20); CALCIUM 9.3 mg/dl (8.6-10.4); GFR NON-AFRICAN AMERICAN > 60
[2018-10-31] MEDS: (Novolin R) Insulin Human Regular 100 units/ml vial SC SCH ×2 (08:08→12:41)
[2018-10-31] MEDS: Metoprolol Succinate 50 mg XL Tab PO SCH (10:09)
[2018-10-31 16:26] VITALS: BP 157/101; PULSE 82; RESP 20; TEMP 97.3; O2SAT 98
--- NOTE | 2018-10-31 16:51 | CP.PCM.PN ---
Subjective - Date & Time of Evaluation Date of Evaluation: 10/31/18 Time of Evaluation: 11:00 Objective - Vital Signs/Intake and Output Vital Signs (last 24 hours): Temp Pulse Resp BP Pulse Ox 97.3 F L 82 20 157/101 H 98 10/31/18 15:25 10/31/18 15:25 10/31/18 15:25 10/31/18 15:25 10/31/18 15:25 Intake and Output: 10/31/18 10/31/18 06:59 18:59 Intake Total 480 Balance 480 - Medications Medications: Current Medications Amlodipine Besylate (Norvasc) 10 mg PO DAILY [facility] Last Admin: 10/31/18 12:41 Dose: 10 mg Aspirin (Ecotrin) 81 mg PO DAILY [facility] Last Admin: 10/31/18 10:09 Dose: 81 mg Gabapentin (Neurontin) 100 mg PO TID [facility] Last Admin: 10/31/18 13:37 Dose: 100 mg Insulin Detemir (Levemir) 35 unit SC [facility] Last Admin: 10/30/18 21:44 Dose: 35 units Insulin Human Regular (Novolin R) 0 unit SC [facility]; Protocol Last Admin: 10/31/18 12:41 Dose: 5 units Metformin HCl (Glucophage) 500 mg PO BID [facility] Last Admin: 10/31/18 10:09 Dose: 500 mg Methadone HCl (Methadone) 5 mg PO Q24H [facility]; Taper Stop: 11/01/18 08:59 Last Admin: 10/31/18 10:10 Dose: 5 mg Metoprolol Succinate (Toprol Xl) 50 mg PO DAILY [facility] Last Admin: 10/31/18 10:09 Dose: 50 mg Mirtazapine (Remeron) 15 mg PO [facility] Last Admin: 10/30/18 21:43 Dose: 15 mg Nicotine (Nicoderm Cq) 1 patch TD DAILY [facility] Last Admin: 10/31/18 10:17 Dose: 1 patch Rosuvastatin Calcium (Crestor) 40 mg PO [facility] Last Admin: 10/30/18 21:43 Dose: 40 mg - Labs Labs: 10/31/18 07:19 10/31/18 07:19 Assessment and Plan - Assessment and Plan (Free Text) Assessment: Patient was seen and examined. Alert and orientedx3, ambulating well. Denies sob or chest pains. Discussed with DR Kennedi, plan to discharge home today. Was seen by the medical social worker, options for in and outpatient rehab information given to the patient. Advised to follow up with PMD in 1 week.
--- NOTE | 2018-11-02 17:28 | CARD ---
APPROVED REPORT Date of service: 10/29/2018 Protocol: LEXISCAN Test Type: LEXISCAN STRESS Test Indications: CP Target HR: 158 bpm Resting ECG: NSR W/ NS ST T CHANGES Resting Heart Rate: 82 bpm Resting Blood Pressure: 150/100mmHg submaximum (85%): 134 bpm TEST SUMMARY [id number]:01..1.082/.0. PREINFSNHYPERV.19:[id number]/100.0. INFUSIONDOSE 100:300.00.01.080/.0. [id number]:[id number]/80.0. PROCEDURE Pharmacologic stress testing was performed using 0.4mg per 5ml of regadenoson given intravenously over 7-10 seconds. POST EXERCISE Reason for Termination: Protocol Completed Target HR: No Max HR: 80 bpm 72% of Maximum Predicted HR: 158 bpm Exercise duration: 00:30 min:sec, 0 Stage Exercise capacity: 1.0METs Max Blood Pressure: 150/100mmHg Blood Pressure response to exercise: normal resting BP - appropriate response Heart Rate response to exercise: appropriate Chest Pain: No, none Angina index: 0 Arrhythmia: Yes, ventricular premature beats ST Change: No, none FROM BASELINE Deviation: 0 mm INTERPRETATION Stress EKG Conclusion: NEGATIVE LEXISCAN STRESS TEST NORMAL BP RESPONSE TO LEXISCAN NUCLEAR STUDIES TO BE READ SEPARATELY EXAM: Myocardial Perfusion STRESS/REST Imaging Protocol The imaging protocol used to acquire images was Stress Tc-99m/rest Tc-99m 1 day Stress Spect myocardial perfusion imaging was performed in supine position 44 minutes following the injection of 12.9 mCi of Tc-99 Myoview. Gated Rest Spect was performed 45 minutes after intravenous 30.3 mCi Tc-99 Myoview injection. The images were gated to evaluate regional wall motion and calculate ventricular ejection fraction.Images were reconstructed using backfilter projection method in short horizontal and verticle long axis. Spect slices were generated. RESTING DATA HNS948.27kgUK4.40L/min1/3 Pk. Filling Rate0.25EDV/sec LV Time to Pk. Filling Ajfq302.08msec ESV66.00mlMyocardial Ujkg605.00gLV Time to Pk. Ejection Dhow499.82msec Pk. Fill Rate1.63EDV/secAv. Heart Rate63.00bpm EF45.00%Pk. Emptying Rate2.22ESV/sec STRESS DATA EDV96.94zyBX9.60L/min ESV42.00mlMyocardial Ngnd569.00g Pk. Fill Rate3.11EDV/sec EF56.00%Pk. Emptying Rate4.20ESV/sec 1/3 Pk. Filling Rate1.20EDV/secRegional WT score at stress:0.00 LV Time to Pk. Filling Rate:187.77msecRegional WM score at stress:0.00 LV Time to Pk. Ejection Rate:109.29msecSummed WT score at stress:21.00 Av. Heart Rate84.00bpmSummed WM score at stress:2.00 LV Perf. Quant 17 Seg. SSS1.00 17 Seg. SRS3.00 17 Seg. SDS0.00 Stress Defect Extent (% LAD)0.00Rest Defect Extent (% LAD)0.00Rev. Defect Extent (% LAD)0.00 Stress Defect Extent (% LCX)20.00Rest Defect Extent (% LCX)41.30Rev. Defect Extent (% LCX)0.00 Stress Defect Extent (% RCA)0.00Rest Defect Extent (% RCA)0.00Rev. Defect Extent (% RCA)0.00 Stress Defect Extent (% ANIRUDH)3.50Rest Defect Extent (% ANIRUDH)7.20Rev. Defect Extent (% ANIRUDH)0.00 IMPRESSION Abnormal Myocardial Perfusion exercise stress study Left Ventricle LV Function:Left ventricle systolic function is normal. The Ejection Fraction is 55-60%. Metabolism/Perfusion Defects: There is scan evidence of reversible ischemia noted in the inferolateral wall. Conclusion 1. There is scan evidence of reversible ischemia noted in the inferolateral wall. 2. Left ventricle systolic function is normal. 3. The Ejection Fraction is 55-60%.
== END 2018-10-31 17:47 | disposition home or self-care (01) | DRG 897 ==
LOC: C.ER 15:12 → C.9E 17:47 → C.6T 18:23 → OBSVTOIN 10-30 23:37
PROVIDERS: ADMIT Internal Medicine; ATTEND Internal Medicine
PROC: HZ2ZZZZ Detoxification Services for Substance Abuse Treatment (ICD-10-PCS; principal; 2018-10-30)
PROC: HZ81ZZZ Medication Management for Substance Abuse Treatment, Methadone Maintenance (ICD-10-PCS; 2018-10-30)
DX: F11.10 Opioid abuse, uncomplicated (principal); F12.90 Cannabis use, unspecified, uncomplicated; F17.210 Nicotine dependence, cigarettes, uncomplicated; E10.59 Type 1 diabetes mellitus with other circulatory complications; E10.65 Type 1 diabetes mellitus with hyperglycemia; E78.00 Pure hypercholesterolemia, unspecified; F32.9 Major depressive disorder, single episode, unspecified; G62.9 Polyneuropathy, unspecified; R07.9 Chest pain, unspecified; I10 Essential (primary) hypertension; I25.10 Atherosclerotic heart disease of native coronary artery without angina pectoris; E10.40 Type 1 diabetes mellitus with diabetic neuropathy, unspecified; Z59.0 Homelessness; Z79.4 Long term (current) use of insulin; Z95.1 Presence of aortocoronary bypass graft; Z95.5 Presence of coronary angioplasty implant and graft